=== PATIENT | male | born 1955 | race Caucasian/White ===

== ENCOUNTER 2019-12-23 22:04 | Emergency (ER) | payer SELFPAY ==
[2019-12-23] MEDS ORDERED: Morphine 2 MG/ML SYRINGE ONE (22:20)
[2019-12-23] MEDS ORDERED: Adacel (T-DAP) 0.5 ML SYRINGE ONE (22:20)
--- NOTE | 2019-12-24 08:16 | RAD ---
LEFT WRIST 3 VIEWS: Date: 12/23/2019 A somewhat comminuted fracture of the distal radius is present with some impaction. Displacement is m inimal, however. There is also a fracture of the ulnar styloid process. The carpal bones appear intac t and their relationships appear normal. IMPRESSION: Fractures of the distal radius and ulnar styloid. POS: HOME
== END 2019-12-23 22:52 | disposition home or self-care (01) ==
LOC: BURERS 22:04
DX: S52.502A Unspecified fracture of the lower end of left radius, initial encounter for closed fracture (principal); S52.612A Displaced fracture of left ulna styloid process, initial encounter for closed fracture; W10.9XXA Fall (on) (from) unspecified stairs and steps, initial encounter; S90.112A Contusion of left great toe without damage to nail, initial encounter; S90.111A Contusion of right great toe without damage to nail, initial encounter; S80.212A Abrasion, left knee, initial encounter; S90.811A Abrasion, right foot, initial encounter; I10 Essential (primary) hypertension; E11.9 Type 2 diabetes mellitus without complications; Z79.84 Long term (current) use of oral hypoglycemic drugs; Z23 Encounter for immunization; Z79.899 Other long term (current) drug therapy
CPT/HCPCS: 29125; 90471; 90715; 96372; J2270